=== PATIENT | female | born 1985 | race Caucasian/White ===

== ENCOUNTER 2018-06-18 02:28 | Outpatient (CLI) | payer MEDICAID, SELFPAY ==
[2018-06-18 09:38] LABS: Anion Gap 5.2 mmol/L (3-11); BUN 13 mg/dL (7-18); CO2 32.8 mmol/L (21.0-32.0); CREATININE 0.71 mg/dL (0.55-1.02); Calcium 9.4 mg/dL (8.5-10.1); Chloride 102 mmol/L (98-107); Cholesterol 225 mg/dL (50-200); Glucose 78 mg/dL (70-100); HDL Cholesterol 84 mg/dL (40-60); LDL CHOLESTEROL 124 mg/dL (<100); Sodium 140 mmol/L (136-145); Triglyceride 59 mg/dL (30-150)
== END 2018-06-18 02:48 ==
PROVIDERS: PCP Family Medicine; Visit Provider Family Medicine
DX: I10 Essential (primary) hypertension (principal); Z00.00 Encounter for general adult medical examination without abnormal findings
CPT/HCPCS: 80048; 80061; 83721

== ENCOUNTER 2019-09-19 08:16 | Outpatient (CLI) | payer BC, SELFPAY ==
[2019-09-23 23:31] LABS: SARS-CoV-2 RNA Undetected (Undetected); SARS-CoV-2 Specimen Source Nasopharynx
== END 2019-09-19 08:36 ==
PROVIDERS: PCP Nurse Practitioner Family; Visit Provider Nurse Practitioner Family
DX: Z11.59 Encounter for screening for other viral diseases (principal)
CPT/HCPCS: U0003

== ENCOUNTER 2020-07-27 03:06 | Outpatient (CLI) | payer BC, SELFPAY ==
[2020-07-27 14:46] LABS: Anion Gap 9.7 mmol/L (3-11); BUN 8 mg/dL (7-18); CO2 28.3 mmol/L (21.0-32.0); CREATININE 0.7 mg/dL (0.55-1.02); Calcium 8.9 mg/dL (8.5-10.1); Chloride 104 mmol/L (98-107); Glucose 91 mg/dL (74-106); Potassium 4.1 mmol/L (3.5-5.1); Sodium 142 mmol/L (136-145)
== END 2020-07-27 03:07 | disposition home or self-care (01) ==
LOC: LBO 03:06
PROVIDERS: PCP Nurse Practitioner Family; Visit Provider Student in an Organized Health Care Education/Training Program
DX: Z79.899 Other long term (current) drug therapy (principal)
CPT/HCPCS: 36415; 80048

== ENCOUNTER 2020-11-11 15:39 | Emergency (ER) | payer BC, SELFPAY ==
[2020-11-11 15:45] VITALS: BP 120/71; PULSE 90; RESP 18; TEMP 36.5; O2SAT 99
--- NOTE | 2020-11-11 16:30 | DI.CT_ITS ---
Exam(s) CT HEAD WO EXAM: CT HEAD WO CLINICAL HISTORY: Headache, nausea, dizziness. TECHNIQUE: Imaging Protocol: Axial computed tomography images with coronal and sagittal reformatted images were created and reviewed COMPARISON: CT HEAD WITHOUT CONTRAST from 09/15/2009 FINDINGS: Ventricles and Extra axial spaces: Normal in size and morphology for the patient's age. Hemorrhage: None. Cerebral parenchyma: Normal. Midline shift: None. Brainstem/Cerebellum: Normal. Calvarium: Normal. Visualized Paranasal sinuses/Mastoids: Clear. Soft Tissues: Unremarkable. IMPRESSION: No acute intracranial process. RADIATION DOSE DELIVERED: 626.56mGy.cm Total DLP DATA REPOSITORY: All CT scans at this facility are submitted to the National Radiology Data Registry (NRDR) Dose Index Registry (DIR) with the [employer] (ACR). RADIATION OPTIMIZATION: All CT scans at this facility use at least one of these dose optimization te chniques: automated exposure control; mA and/or kV adjustment per patient size (includes targeted exa ms where dose is matched to clinical indication); or iterative reconstruction.
--- NOTE | 2020-11-11 16:40 | W.ED.GENAD ---
Discharge Plan Disposition Patient Disposition: HOME Condition: Stable Discharge Details Clinical Impression: Headache Primary Care Provider: Deborah Rincon ED Provider: Selena Grider Home Meds and New Rx's Prescriptions: Continued multivitamin tablet 1 tab PO DAILY RF: 0 diazepam [Valium] 5 mg tablet 5 mg PO DAILY PRN (Reason: muscle spasm) Qty: 30 RF: 0 tretinoin 0.025 % cream 1 applic topical QHS RF: 0 No Action spironolactone 100 mg tablet 150 mg PO DAILY RF: 0 tramadol 50 mg Tablet 75 mg PO PRN PRNRF: 0 Discharge Instructions Instructions: General Headache (ED) Additional Instructions: Head CT today is within normal limits. Covid is negative. Follow up with primary care provider in 3-5 days. Return to ED sooner if any worsening or concerns. Increase oral fluids. Please take Tylenol or Ibuprofen with food every 4-6 hours as needed for pain and swelling. Stand Alone Forms: Work Release Referrals: Deborah Rincon NP [Primary Care Provider] - 5 days Discharge Data Discharge Date/Time-TO BE ENTERED AT DEPARTURE: 11/11/20 18:24 Medical Decision Making 35-year-old female presents to the ER chief complaint of headache, nausea and dizziness which began around 1:00. Patient reports sudden onset, associated with nausea, light sensitivity, dizziness and heart pounding. Patient reports being on spironolactone for acne. She was instructed by her tar leveler to stop this medication. She reports never having a headache of this nature. She does have a history of tension headaches. 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 She denies any fever chills or diarrhea. No vomiting. She is on her current menses. At this time CBC, CMP, urinalysis, urine drug, Covid test and CT head ordered. Will give patient a liter of normal saline, Compazine, Benadryl. Patient refused Compazine. Imaging protocol: Computed tomography of the head without contrast. COMPARISON: No relevant images were readily available for comparison purposes. FINDINGS: Brain: No evidence of acute infarct, acute hemorrhage, or intracranial mass. Cerebral ventricles: No ventriculomegaly. Paranasal sinuses: Clear Mastoid air cells: Clear Bones/joints: No acute skull fracture Soft tissues: Unremarkable superficial soft tissues IMPRESSION: No acute intracranial process Patient given Toradol upon reevaluation she feels like she is much better. Headache has improved. IV normal saline done infusing. CT results discussed with patient who verbalized understanding. Patient discharged home with instructions to follow-up with PCP. Ambulatory upon her disposition, hemodynamically stable alert and oriented. This text was generated using [employer] dictation system, please disregard any oddities of phrase or misspellings. HPI General Mode of arrival: ambulatory. Date/Time Provider Initiated Documentation: 11/11/20 15:43. Limitations to Documentation: no limitations. Information obtained by: patient and RN notes reviewed. HPI Narrative: 35-year-old female presents to the ER chief complaint of headache, nausea and dizziness which began around 1:00. Patient reports sudden onset, associated with nausea, light sensitivity, dizziness and heart pounding. Patient reports being on spironolactone for acne. She was instructed by her tar leveler to stop this medication. She reports never having a headache of this nature. She does have a history of tension headaches. 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 She denies any fever chills or diarrhea. No vomiting. She is on her current menses. Related Data Home Medications Medication Instructions Recorded Confirmed multivitamin 1 tab PO DAILY 05/28/18 11/11/20 diazepam 5 mg tablet 5 mg PO DAILY PRN #30 tab 10/13/20 11/11/20 tretinoin 0.025 % topical cream 1 applic TOPICAL QHS 11/04/20 11/11/20 spironolactone 100 mg tablet 150 mg PO DAILY tab 11/11/20 11/11/20 tramadol 75 mg PO PRN PRN 11/11/20 11/11/20 Previous Rx's Medication Instructions Recorded diazepam 5 mg tablet 5 mg PO DAILY PRN #30 tab 10/13/20 Allergies Allergy/AdvReac Type Severity Reaction Status Date / Time No Known Allergies Allergy Verified 11/11/20 15:49 General Stated Complaint: Headache LOUIE: 3 Review of Systems All systems reviewed & are unremarkable except as noted in HPI and below Constitutional Constitutional: Reports headache(s) ENT Ears, Nose, Mouth, and Throat: Reports headache(s) Neurologic Neurologic: Reports headache(s) [facility] Medical History Cystic acne Generalized anxiety disorder Hyperlipidemia Major depressive disorder Tension headache TMJ syndrome Surgical History S/P appendectomy Family History Mother Alcohol abuse Essential hypertension Depression Heart disease Hyperlipidemia Ulcerative colitis Father Skin cancer COPD (chronic obstructive pulmonary disease) Sister No problems noted. Sister , 42 Brainstem glioma Son ADHD Son No problems noted. Maternal Grandfather , AGE 76 Heart disease Colon cancer Paternal Grandfather , AGE 45 No problems noted. Maternal Grandmother , AGE 60 Lung cancer Paternal Grandmother , AGE 89 Stroke Social History Smoking/Tobacco Use Status: Never Smoking risk assessment performed?: Yes Alcohol Intake: current Alcohol Intake frequency: a few times a month Alcohol type: wine and hard liquor Drug use: Rarely Substance use type: marijuana Caregiver/Support person: No Household members: spouse and children Housing: house Communication Needs: None Do you need help understanding health information?: Never Pets and animals: Yes Pets and animals: dog(s) Sexually active: Yes Do you think of yourself as: straight/heterosexual Current gender identity: female What is your relationship status?: How often do you talk on the phone with friends or family?: once per week How often do you get together with friends or relatives?: once per week How often do you attend congregation or taoism services?: decline to answer Do you belong to any clubs or organized social groups?: no Panel score (0-1 are the most socially isolated patients): 1 What type of physical activity do you participate in: walking, bicycling, running and yoga Duration: 30-45 minutes/day Frequency: daily Araceli/Pentecostal: No preference Special araceli needs: No Seatbelt use: always Helmet use: Yes Helmet use: always Drive intox or ride w/intox cdl truck driver: No Do you feel safe at home: Yes Do you feel safe in your relationship?: Yes Female Reproductive History Menstrual control method: other ( had vasectomy) History History 3 Para 2 Hx # Term Pregnancies Multiple births Hx # Pregnancies Ectopic pregnancies AB induced 1 Hx Number of Living Children 2 AB spontaneous Exam Narrative Exam Narrative: Constitutional: Alert and oriented x3. Appears stated age. Normal body habitus. Head: Normocephalic, no trauma. Eyes: Pupils PERRLA, Red reflex noted, EOM's intact. Eyelids symmetrical without lesions, discharge, or swelling. ENT: Bilateral TM's WNL, External ear normal to inspection, no mastoid TTP, swelling, or erythema, Nasal turbinates WNL, no nasal discharge. Normal dentition, Posterior pharynx WNL, no exudate. Chest: RRR, Normal S1, S2, distal pulses intact. Resp: Lungs clear to auscultation bilaterally, no wheezes, rales, or rhonchi. Musculoskeletal: Normal gait, 5/5 strength to all four extremities. Skin: No suspicious rashes or lesions. Capillary refill less than 2 sec. Neurologic: Cranial nerves II-XII intact. Alert and oriented x 3. DTR's intact. Hematologic/Lymphatic: No ecchymosis, no lymphadenopathy. Course Vital Signs Vital signs: Vital Signs Temperature 36.5 C 11/11/20 15:45 Pulse 90 11/11/20 15:45 Respiratory Rate 18 11/11/20 15:45 Blood Pressure 120/71 11/11/20 15:45 Pulse Oximetry 99 11/11/20 15:45 Temperature 36.5 C 11/11/20 15:45 Temperature Source Temporal Artery Scan 11/11/20 15:45 Pulse 90 11/11/20 15:45 Respiratory Rate 18 11/11/20 15:45 Respiratory Effort Non-Labored 11/11/20 15:52 Blood Pressure 120/71 11/11/20 15:45 Blood Pressure Position Sitting 11/11/20 15:45 Pulse Oximetry 99 11/11/20 15:45 Oxygen Delivery Method Room Air 11/11/20 15:45 Oxygen Flow Rate 0 11/11/20 15:45 Pain Level 7 11/11/20 15:45
[2020-11-11 16:51] LABS: Source Nasal/Nares
[2020-11-11] MEDS: Normal Saline 1,000 ML 1000 ML IV (17:00)
[2020-11-11] MEDS: diphenhydrAMINE 50 MG/ML VIAL 25 MG IVP (17:01)
--- NOTE | 2020-11-11 17:03 | NUR.NOTE ---
Pt IVF initiated to [facility] IV site, pt to CT via stretcher with transport OUTPATIENT CODER. Pt medicated per EMAR, compazine held d/t pt reports makes my anxiety bad & I want to crawl the kurtz, provider notified Nursing Note:
[2020-11-11 17:08] LABS: ALT 17 U/L (14-59); AST 14 U/L (15-37); Albumin 4.8 g/dL (3.4-5.0); Alkaline Phosphatase 38 U/L (46-116); Anion Gap 8.3 mmol/L (3-11); BUN 10 mg/dL (7-18); Bilirubin, Total 0.6 mg/dL (0.2-1.0); CO2 28.7 mmol/L (21.0-32.0); CREATININE 0.8 mg/dL (0.55-1.02); Calcium 9.1 mg/dL (8.5-10.1); Chloride 102 mmol/L (98-107); Glucose 113 mg/dL (74-106); Potassium 3.4 mmol/L (3.5-5.1); Sodium 139 mmol/L (136-145); Total Protein 8.5 g/dL (6.4-8.2)
[2020-11-11 17:11] LABS: Abs Immature Grans 0.02 10^3/uL (0.0-0.06); Absolute Basophil Count 0.04 10^3/uL (0.0-0.2); Absolute Eosinophil Count 0.02 10^3/uL (0.0-0.7); Absolute Lymphocyte Count 2.34 10^3/uL (1.2-3.4); Absolute Monocyte Count 0.33 10^3/uL (0.1-0.8); Absolute Neutrophil Count 5.23 10^3/uL (1.2-6.7); Basophils % 0.5; Eosinophils % 0.3; HGB 14.3 g/dL (11.2-15.7); Immature Grans % 0.3; Lymphocytes % 29.3; MCH 29.3 pg (27.0-33.0); MCHC 33.3 % (32.0-36.0); MCV 88.1 fL (80-95); MPV 10.7 fL (8.0-11.0); Monocytes % 4.1; Neutrophils % 65.5; Nucleated RBC 0 %; Platelet Count 221 10^3/uL (130-400); RBC 4.88 10^6/uL (3.93-5.22); RDW 11.8 % (11.7-14.6); RDW-SD 37.8 fL; WBC 7.98 10^3/uL (4.4-10.8)
--- NOTE | 2020-11-11 17:15 | NUR.NOTE ---
Pt return from CT, c/o 'feeling cold' warm blankets provided, reports no nausea and BERRY 05/05. Nursing Note:
--- NOTE | 2020-11-11 17:40 | DI.VRAD_ITS ---
PROCEDURE INFORMATION: Exam: CT Head Without Contrast Exam date and time: 11/11/2020 4:39 PM Age: 35 years old Clinical indication: Pain; Other: Headache, nausea, dizziness TECHNIQUE: Imaging protocol: Computed tomography of the head without contrast. COMPARISON: No relevant images were readily available for comparison purposes. FINDINGS: Brain: No evidence of acute infarct, acute hemorrhage, or intracranial mass. Cerebral ventricles: No ventriculomegaly. Paranasal sinuses: Clear Mastoid air cells: Clear Bones/joints: No acute skull fracture Soft tissues: Unremarkable superficial soft tissues IMPRESSION: No acute intracranial process Dictated and Authenticated by: John Castro MD. Ordering:ALVIN Walters MD
[2020-11-11 17:50] LABS: COVID-19 PCR Negative (Negative)
[2020-11-11] MEDS: Ketorolac 30 MG/ML VIAL IVP (18:08)
== END 2020-11-11 18:24 | disposition home or self-care (01) ==
PROVIDERS: Emergency Provider Registered Nurse Emergency; PCP Nurse Practitioner Family
DX: R51.9 Headache, unspecified (principal); Z20.822 Contact with and (suspected) exposure to COVID-19; R42 Dizziness and giddiness; R11.0 Nausea
CPT/HCPCS: 80053; 87635; 96361; 96374; 96375; 99284; 70450; 85025; J1200; J1885

== ENCOUNTER 2021-06-15 03:07 | Outpatient (CLI) | payer BC, SELFPAY ==
[2021-06-15 08:59] LABS: Abs Immature Grans 0.01 10^3/uL (0.0-0.06); Absolute Basophil Count 0.05 10^3/uL (0.0-0.2); Absolute Eosinophil Count 0.03 10^3/uL (0.0-0.7); Absolute Lymphocyte Count 1.68 10^3/uL (1.2-3.4); Absolute Neutrophil Count 5.05 10^3/uL (1.2-6.7); Basophils % 0.7; Eosinophils % 0.4; HCT 40.9 % (36.0-46.0); HGB 13.5 g/dL (11.2-15.7); Immature Grans % 0.1; Lymphocytes % 23.3; MCH 29.8 pg (27.0-33.0); MCV 90.3 fL (80-95); MPV 11.1 fL (8.0-11.0); Monocytes % 5.5; Platelet Count 178 10^3/uL (130-400); RBC 4.53 10^6/uL (3.93-5.22); RDW-SD 39.6 fL; WBC 7.22 10^3/uL (4.4-10.8)
[2021-06-15 09:57] LABS: ALT 15 U/L (14-59); AST 15 U/L (15-37); Albumin 4.4 g/dL (3.4-5.0); Alkaline Phosphatase 44 U/L (46-116); Anion Gap 9.9 mmol/L (3-11); BUN 12 mg/dL (7-18); Bilirubin, Total 0.6 mg/dL (0.2-1.0); CO2 27.1 mmol/L (21.0-32.0); CREATININE 0.8 mg/dL (0.55-1.02); Calculated LDL 123 mg/dL (<100); Chloride 104 mmol/L (98-107); Cholesterol 208 mg/dL (<200); Glucose 75 mg/dL (74-106); HDL Cholesterol 76 mg/dL (40-60); Potassium 4.4 mmol/L (3.5-5.1); Sodium 141 mmol/L (136-145); TSH (W/Ref FT4) 1.62 uIU/mL (0.36-3.74); Total Protein 7.4 g/dL (6.4-8.2); Triglyceride 47 mg/dL (<150)
[2021-06-16 05:27] LABS: Vitamin D 25 Total 27.3 ng/mL (30-100)
== END 2021-06-15 03:08 | disposition home or self-care (01) ==
LOC: LBO 03:07
PROVIDERS: PCP Nurse Practitioner Family; Visit Provider Nurse Practitioner Family
DX: R53.83 Other fatigue (principal)
CPT/HCPCS: 36415; 80053; 80061; 82306; 84443; 85025

== ENCOUNTER 2021-10-05 20:23 | Outpatient (REF) | payer OTHER, SELFPAY ==
[2021-10-05 21:36] LABS: Bilirubin Negative (Negative); Blood Negative (Negative); Clarity Clear (Clear); Glucose Negative (Negative); Ketones Negative (Negative); Leukocyte Esterase Negative (Negative); Nitrite Negative (Negative); Urobilinogen 0.2 EU/dL (Up TO 0.2); pH 6.5 (5-8)
[2021-10-05 22:07] LABS: Bacteria Negative HPF (Negative); C & S Indicated? C&S Done As Ordered; Crystals Negative HPF (Negative); Epithelial Cells Few HPF (Negative); Mucus Negative (Negative); RBC 0-2 HPF (0-2); WBC Negative HPF (0-5)
[2021-10-07 15:08] LABS: Chlamydia Result Negative (Negative); GC Result Negative (Negative)
== END 2021-10-05 20:24 | disposition home or self-care (01) ==
LOC: LBN 20:23
PROVIDERS: PCP Nurse Practitioner Family; Visit Provider Physician Assistant Medical
DX: R39.89 Other symptoms and signs involving the genitourinary system (principal)
CPT/HCPCS: 87491; 87591; 81003; 81015; 87086; 87480; 87510; 87660

== ENCOUNTER 2022-04-06 13:15 | Outpatient (REF) | payer OTHER, SELFPAY ==
[2022-04-10 15:03] LABS: Helicobacter pylori Ag, Feces Negative (Negative)
== END 2022-04-06 13:16 | disposition home or self-care (01) ==
LOC: LBN 13:15
PROVIDERS: PCP Nurse Practitioner Family; Visit Provider Nurse Practitioner Family
DX: K29.70 Gastritis, unspecified, without bleeding (principal)
CPT/HCPCS: 87338

== ENCOUNTER 2022-06-23 10:18 | Outpatient (CLI) | payer OTHER, SELFPAY ==
[2022-06-23 13:03] LABS: Anion Gap 4.7 mmol/L (3-11); BUN 12 mg/dL (7-18); CO2 29.3 mmol/L (21.0-32.0); CREATININE 0.8 mg/dL (0.55-1.02); Calcium 8.9 mg/dL (8.5-10.1); Chloride 106 mmol/L (98-107); Estimated GFR 97.26 (mL/min/1.73m2); Glucose 89 mg/dL (74-106); Potassium 4.3 mmol/L (3.5-5.1); Sodium 140 mmol/L (136-145); TSH (W/Ref FT4) 1.39 uIU/mL (0.36-3.74)
[2022-06-23 13:14] LABS: Vitamin D 25 Total 29.2 ng/mL (30-100)
[2022-06-23 23:19] LABS: FSH 4.5 mIU/mL (See Note); LH 2.1 mIU/mL (See Note)
== END 2022-06-23 10:19 | disposition home or self-care (01) ==
LOC: LOS 10:18
PROVIDERS: PCP Nurse Practitioner Family; Referring Provider Nurse Practitioner Family; Visit Provider Nurse Practitioner Family
DX: E55.9 Vitamin D deficiency, unspecified (principal); N92.6 Irregular menstruation, unspecified
CPT/HCPCS: 36415; 80048; 82306; 83001; 83002; 84443

== ENCOUNTER 2022-06-30 14:16 | Outpatient (RCR) | payer OTHER, SELFPAY ==
--- NOTE | 2022-06-30 14:15 | HOLTER_ITS ---
APPROVED REPORT Conclusion This is a 48-hour Holter monitor ordered for tachycardia Rhythm throughout was sinus with an average heart rate of 80. Minimum was 55, maximum 123 There were no ventricular dysrhythmias A total of 15 isolated premature atrial contractions were seen There was no atrial fibrillation, no SVT, no high-grade AV block, no pauses greater than 3 seconds No patient symptoms were reported
== END 2022-07-26 23:59 | disposition home or self-care (01) ==
LOC: CARDOPNVT 14:16
PROVIDERS: PCP Nurse Practitioner Family; Visit Provider Nurse Practitioner Family
DX: R00.0 Tachycardia, unspecified (principal)
CPT/HCPCS: 93225; 93226

== ENCOUNTER → 2023-05-04 00:57 | Outpatient (CLI) | payer OTHER, SELFPAY ==
--- NOTE | 2023-05-04 08:46 | DI.RAD_ITS ---
Exam(s) XR FOOT RT COMPLETE EXAM: XR FOOT RT COMPLETE CLINICAL HISTORY: right foot pain,[id number]. TECHNIQUE: 2D digital imaging was performed of the right foot. Three images were obtained. AP, obl ique and lateral views were obtained. COMPARISON: No exams were available for comparison FINDINGS: BONES: No acute fracture is present. No bony destructive lesion is seen. The 1st metatarsophalangeal angle is 15 degrees which is at the upper limits of normal. JOINTS: No dislocation present. The joint spaces are well maintained. SOFT TISSUE: Normal. IMPRESSION: Unremarkable radiographs of the right foot. DATA REPOSITORY: RADIATION DOSE DELIVERED:
== END ==
PROVIDERS: PCP Nurse Practitioner Family; Visit Provider Nurse Practitioner Family
DX: M79.671 Pain in right foot (principal)
CPT/HCPCS: 73630

== ENCOUNTER 2023-07-10 05:15 | Outpatient (CLI) | payer OTHER, SELFPAY ==
[2023-07-10 09:55] LABS: Anion Gap 9.3 mmol/L (3-11); BUN 17 mg/dL (7-18); CO2 29.7 mmol/L (21.0-32.0); CREATININE 0.9 mg/dL (0.55-1.02); Calcium 9.5 mg/dL (8.5-10.1); Calculated LDL 136 mg/dL (<100); Chloride 104 mmol/L (98-107); Cholesterol 246 mg/dL (<200); Estimated GFR 83.92 (mL/min/1.73m2); Glucose 68 mg/dL (74-106); HDL Cholesterol 96 mg/dL (40-60); Potassium 4.6 mmol/L (3.5-5.1); Sodium 143 mmol/L (136-145); TSH (W/Ref FT4) 3.27 uIU/mL (0.36-3.74); Triglyceride 74 mg/dL (<150)
[2023-07-10 10:09] LABS: Vitamin D 25 Total 34.6 ng/mL (30-100)
[2023-07-10 18:41] LABS: Estradiol 36 pg/mL (See Note)
[2023-07-10 19:24] LABS: FSH 10.9 mIU/mL (See Note); Prolactin 6.8 ng/mL (See Note)
== END 2023-07-10 05:16 | disposition home or self-care (01) ==
PROVIDERS: PCP Nurse Practitioner Family; Visit Provider Nurse Practitioner Family
DX: Z00.00 Encounter for general adult medical examination without abnormal findings (principal); N93.9 Abnormal uterine and vaginal bleeding, unspecified
CPT/HCPCS: 36415; 80048; 80061; 82306; 82670; 83001; 84146; 84443

== ENCOUNTER 2024-12-25 10:41 | Outpatient (REF) | payer OTHER, SELFPAY | END 2024-12-25 10:42 | disposition home or self-care (01) | LOC: LBN 10:41 | PROVIDERS: PCP Nurse Practitioner Family; Visit Provider Obstetrics & Gynecology | DX: Z12.4 Encounter for screening for malignant neoplasm of cervix (principal) | CPT/HCPCS: 88142; 87624 ==

== ENCOUNTER → 2025-01-06 00:23 | Outpatient (CLI) | payer OTHER, SELFPAY ==
--- NOTE | 2025-01-06 08:07 | DI.MAMMO_ITS ---
Exam(s) MAMMO SCREENING EXAM: MAMMO SCREENING CLINICAL HISTORY: screening. TECHNIQUE: Bilateral full field digital CC and MLO mammographic images were obtained with 3D tomosynthesis and utilizing computer aided detection (CAD). COMPARISON: None. This is a baseline mammogram on a 39-year-old. FINDINGS: Fibroglandular tissue pattern is heterogeneously dense. There is a benign intramammary lymph node in the lateral aspect of the right breast. No other significant right breast findings Posteriorly in the left breast there is an asymmetric density-possible nodule measuring approximately 9 by 10 mm and located 5 cm behind the nipple on the CC view and 7 cc in from the nipple on the MLO view. There are no malignant-appearing microcalcification groups is region or elsewhere in either breast. There is no significant architectural distortion nor skin thickening-retraction. IMPRESSION: 1. No radiographic evidence of malignancy in the right breast. 2. Asymmetric density-possible 1 cm nodule posteriorly in the left breast. Spot compression views and breast ultrasound recommended. BI-RADS Category 0 - Incomplete: Need additional imaging evaluation Breast Density - Category C - The breast are heterogeneously dense, which may obscure small masses. Breast density Category C or D implies that the patient has dense breast tissue. Dense breast tissue can make it harder to find cancer on a mammogram. Dense breast tissue is also associated with an increased risk of breast cancer. This information about the result of the mammogram report was provided to the patient to raise their awareness. Use this report when you speak with the patient about their risks for breast cancer, which includes their family history. At that time, you may recommend additional screening tests (Ultrasound or MRI) as these tests may add significant information. A negative radiographic report should not delay biopsy if a dominant or clinically suspicious mass is present. Up to ten percent of cancers are not identified on mammography. A negative report may reinforce clinical impression. Adenosis and dense breasts may obscure an underlying neoplasm. False positive reports average 6 to 10%. Patient will receive a letter notifying them of these results.
== END ==
LOC: DI 00:23
PROVIDERS: PCP Nurse Practitioner Family; Visit Provider Obstetrics & Gynecology
DX: Z12.31 Encounter for screening mammogram for malignant neoplasm of breast (principal); R92.323 Mammographic fibroglandular density, bilateral breasts
CPT/HCPCS: 77063; 77067

== ENCOUNTER → 2025-01-12 01:33 | Outpatient (CLI) | payer OTHER, SELFPAY ==
--- NOTE | 2025-01-12 | DI.MAMMO_ITS ---
Exam(s) MG MAMMO SCREEN CALL BACK UNI US BREAST LT LIMITED EXAM: MG MAMMO SCREEN CALL BACK UNI CLINICAL HISTORY: F/U ABNL MAMMO, ASYMM DENSITY POSS 1 CM NODULE LT BREAST. TECHNIQUE: Craniocaudal and mediolateral oblique spot compression digital Mammography views of the leftbreast with Tomosynthesis and left breast ultrasound. COMPARISON: MG MAMMO SCREENING from 01/06/2025 FINDINGS: Mammography/Tomosynthesis: Masses: None seen. Architectural Distortion: None seen. Microcalcifictions: No suspicious pleomorphic-type are seen. Skin Thickening/Nipple Retraction: None. Left breast US: Echotexture: Normal appearance of the glandular tissue. Shadowing: No suspicious foci. Cyst: None. Solid lesions: None seen. Ductal dilation: None. IMPRESSION: 1. No evidence of malignancy is noted. 2. Unless there is more urgent need, follow-up screening mammography is recommended, as per [place] [employer] guidelines. 3. The findings were discussed with the patient on the date of the examination. BI-RADS Category 1 - Negative Breast Density - Category C - The breast are heterogeneously dense, which may obscure small masses. Breast density Category C or D implies that the patient has dense breast tissue. Dense breast tissue can make it harder to find cancer on a mammogram. Dense breast tissue is also associated with an increased risk of breast cancer. This information about the result of the mammogram report was provided to the patient to raise their awareness. Use this report when you speak with the patient about their risks for breast cancer, which includes their family history. At that time, you may recommend additional screening tests (Ultrasound or MRI) as these tests may add significant information. A negative radiographic report should not delay biopsy if a dominant or clinically suspicious mass is present. Up to ten percent of cancers are not identified on mammography. A negative report may reinforce clinical impression. Adenosis and dense breasts may obscure an underlying neoplasm. False positive reports average 6 to 10%. Patient will receive a letter notifying them of these results.
== END ==
LOC: DI 01:33
PROVIDERS: PCP Nurse Practitioner Family; Visit Provider Obstetrics & Gynecology
DX: Z12.31 Encounter for screening mammogram for malignant neoplasm of breast (principal)
CPT/HCPCS: 76642; 77063; 77067